=== PATIENT | male | born 1960 | race Caucasian/White ===

== ENCOUNTER 2020-09-18 11:02 | Day surgery (SDC) | payer BC ==
--- NOTE | 2020-09-15 14:30 | RAD REPORT ---
EXAM DESCRIPTION: Teofilo Travis And Uziel (2 Views)09/15/2020 2:08 pm CLINICAL HISTORY: Preop for cardiac catheterization COMPARISON: 2012 FINDINGS: Lungs are hyperaerated. The lungs appear clear of acute infiltrate. The heart is normal size IMPRESSION: No acute abnormalities displayed
[2020-09-15 14:57] LABS: Absolute Lymphocytes (CBC) 1.8 K/uL (0.7-4.9); Basophils % 0.7 % (0-1.3); Hematocrit 43.1 % (39.6-49.0); Lymphocytes % 24.7 % (15.3-44.8); MPV 7.7 fL (7.6-11.3); RBC Red Blood Cell Count 4.73 M/uL (4.33-5.43)
[2020-09-15 14:59] LABS: Protime INR 1.01
[2020-09-15 15:01] LABS: Potassium 3.8 mmol/L (3.5-5.1)
[2020-09-18] MEDS ORDERED: MIDAZOLAM HCL 2 MG/2 ML INJ ONE (11:24)
[2020-09-18] MEDS ORDERED: HEPARIN 5000 UNIT/ML 1 ML VIAL ONE (11:24)
[2020-09-18] MEDS ORDERED: HEPA 1000U/500MLS 1,000 UNIT/500 ML BAG IV ONE ×4 (11:24→12:50)
[2020-09-18] MEDS ORDERED: NITROGLYCERIN/D5W 25 MG/250 ML BTL IV ONE (11:25)
[2020-09-18] MEDS ORDERED: VERAPAMIL HCL 10 MG/4 ML VIAL IV ONE (11:25)
[2020-09-18] MEDS ORDERED: HEPARIN 10,000 UNIT/10 ML VIAL IV ONE (11:25)
[2020-09-18] MEDS ORDERED: NITROGLYCERIN 100 MCG/ML SYR (for cath lab use only) IV ONE (11:25)
[2020-09-18] MEDS ORDERED: ATROPINE SULF 1 MG/10 ML SYR IV ONE (11:25)
[2020-09-18] MEDS ORDERED: NA CHLORIDE 0.9% 500 ML ONE ×2 (11:37→14:20)
[2020-09-18 11:38] VITALS: TEMP 97.5
[2020-09-18] MEDS ORDERED: LIDOCAINE 1% 20 ML MDV ONE (12:06)
[2020-09-18] MEDS ORDERED: FENTANYL CITR 100 MCG/2 ML ONE (12:12)
[2020-09-18] MEDS ORDERED: TICAGRELOR 90 MG TABLET PO ONE (13:23)
[2020-09-18 14:55] VITALS: O2SAT 99
[2020-09-18 17:17] VITALS: BP 126/65
--- NOTE | 2020-09-18 23:04 | OP ---
Date of Procedure: 09/18/2020 Surgeon: KARI HOLLY Procedure Performed: 1.Selective coronary angiogram. 2.Left heart catheterization. 3.PCI of severe mid LAD 99% stenosis using 3.0 x 12 mm inflated to high pressure to size of 3.3 mm w ith 0% residual stenosis and SAY-3 flow after PCI. 4.PCI of severe proximal 80% RCA and severe mid 90 to 95% very long RCA lesions using 3.5 x 38 mm Sy nergy drug-eluting stent, postdilated the midportion using 4.0 x 8 mm NC balloon and postdilated the proximal portion using 5.0 x 50 mm NC balloon, 0% residual stenosis and SAY-3 flow resulting. Access: Right radial artery 6-Spanish closed with TR band. Complications: None. Bleeding: Less than 20 mL. Indication: Unstable angina. Description Of Procedure: After risks, benefits, and alternatives were explained, patient agreed to proceed and signed informed consent. Then, the patient was brought into the cardiac catheterization laboratory, prepped and draped in usual sterile fashion. Then we accessed right radial artery using pediatric micropuncture kit, placed 6-Spanish Slender sheath and then took [place] 5-Spanish 4.0 catheter into the aortic root over J-wire and engaged left main and right coronary artery and took standard v iews. Intervention Details: We gave systemic heparin to assure ACT level above 250 and then took a 6-Frenc h EBU 3.5 guide into the aortic root, engaged left main and then took a short run-through wire across the LAD across the area of stenosis, pre-dilated the lesion very well, and then placed a 3.0 x 12 mm Synergy drug-eluting stent to high pressure to size of 3.3 mm with 0% residual stenosis and SAY-3 f low post PCI. Then exchanged the EBU 3.5 to 6-Spanish JR4 guide and engaged right coronary artery, to ok a short run-through wire across the area of stenosis and placed the wire at the distal portion of the artery. Then pre-dilated a very long lesion of mid RCA and proximal RCA very well and then place d a 3.5 x 38 mm Synergy drug-eluting stent. We took a 4.0 x 50 mm NC balloon, post dilated the midpo rtion of the stent, and then took 5.0 x 50 mm NC balloon, post dilated the proximal part of the stent , 0% residual stenosis, SAY-3 flow and no complications. Removed the wires and the catheters. Philip castillo the sheath and placed TR band with good hemostasis. Findings: 1.Left main is large, normal. 2.LAD large vessel with midportion of 99% stenosis with SAY-2 flow, status post successful PCI as a brooke with resultant SAY-3 flow and 0% residual stenosis. In the mid LAD, there is a diffuse 20 to 3 0% stenosis. On the LAD, also, there is a diagonal 1 branch that has 60% stenosis, but it is a small branch. 3.Left circumflex, patent proximal stent with mild ISR 10%. 4.RCA; large dominant vessel with proximal 80% and the mid diffuse very long more than 25 mm severe stenosis 90-90% and then gives collaterals to the LAD, status post successful PCI as above with a 0% residual stenosis and SAY-3 flow post PCI. Conclusion: Severe LAD and RCA stenosis status post successful PCI of both. Plan: Continue Brilinta. We will give an extra dose now and continue aspirin and Repatha. Follow u p with me in the office in 4 weeks. SR/MODL Voice ID: [id number] Report ID: [id number]
== END 2020-09-18 16:45 | disposition home or self-care (01) ==
LOC: CCL 11:02
PROVIDERS: ATTEND Internal Medicine
DX: I25.110 Atherosclerotic heart disease of native coronary artery with unstable angina pectoris (principal); T82.855A Stenosis of coronary artery stent, initial encounter; I10 Essential (primary) hypertension; E78.5 Hyperlipidemia, unspecified; Z20.822 Contact with and (suspected) exposure to COVID-19; Z88.8 Allergy status to other drugs, medicaments and biological substances; Z82.49 Family history of ischemic heart disease and other diseases of the circulatory system
CPT/HCPCS: 85025; 80048; 36415; 85610; 85730; 71046; 92928 ×2; 93458; U0002; C1893; C1725; J1644 ×5; J2250; J3010; J7040 ×2; 85347